=== PATIENT | male | born 1940 | race Caucasian/White ===

== ENCOUNTER 2020-12-08 12:20 | Emergency (ER) | payer BC ==
[2020-12-08 12:30] VITALS: BP 144/79; PULSE 83; TEMP 97.6; BMI 35.2
[2020-12-08 12:57] LABS: BASO % 2.3 % (0-2.0); HEMATOCRIT 31.8 % (35.4-49); HEMOGLOBIN 10.2 GM/dl (11.7-16.9); LYMPH % 13.4 % (8-40); MCH 28.8 pg (25.7-33.7); MCHC 32.2 g/dl (32.0-35.9); MEAN CELL VOLUME 89.6 fl (80-96); MEAN PLT VOLUME 8.5 fl (7.5-11.1); MONO % 10.8 % (3.8-10.2); NEUT % 71.5 % (42.8-82.8); PLATELET COUNT 358 10^3/uL (134-434); RBC 3.55 M/mm3 (4.00-5.60); RDW 19.5 % (11.9-15.9); WHITE BLOOD COUNT 14.1 K/mm3 (4.0-10.8)
[2020-12-08 12:58] LABS: ADD RBC MORPHOLOGY YES
[2020-12-08 13:04] LABS: ALBUMIN 3.8 g/dl (3.4-5.0); BILIRUBIN,TOTAL 0.8 mg/dl (0.2-1); CALCIUM 8.6 mg/dl (8.5-10); CREATININE 1.7 mg/dl (0.55-1.3); MAGNESIUM 2.4 mg/dL (1.8-2.4); PHOSPHOROUS 4.3 mg/dl (2.5-4.9); TOT PROT 6.1 g/dl (6.4-8.2)
[2020-12-08 13:20] LABS: ANISOCYTOSIS 1+
[2020-12-08] MEDS ORDERED: SODIUM POLYSTYRENE SULFONATE 15 GM/60 ML BOTTLE PO ONE (13:29)
[2020-12-08] MEDS ORDERED: SODIUM POLYSTYRENE SULFONATE 15 GM/60 ML BOTTLE ONE (13:34)
== END 2020-12-08 13:55 | disposition home or self-care (01) ==
LOC: FER 12:20
DX: E87.5 Hyperkalemia (principal); N18.9 Chronic kidney disease, unspecified; I45.10 Unspecified right bundle-branch block; I44.0 Atrioventricular block, first degree
CPT/HCPCS: 36415; 80053; 83735; 84100; 85025; 93005; 99284-25